=== PATIENT | female | born 1945 | race African-American/Black ===

== ENCOUNTER 2021-07-25 11:19 | Observation (INO) | payer MEDICARE, OTHER ==
[~2021-07-25] VITALS: Ht 157.5 cm; Wt 106.5 kg
[2021-07-25] MEDS ORDERED: ONDANSETRON PF 4 MG/2 ML VIAL. IVP ONE (12:45)
[2021-07-25] MEDS ORDERED: diazePAM 5 MG TABLET PO ONE (12:45)
[2021-07-25] MEDS ORDERED: IV NORMAL SALINE 1000ML BAG 1,000 ML IV ONE (12:45)
[2021-07-25] MEDS ORDERED: MECLIZINE HCL 12.5 MG TABLET. PO ONE (12:45)
[2021-07-25 12:57] LABS: BASO % 0 % (0-3); EOS % 1 % (0-3); HEMATOCRIT 41.9 % (36.0-47.0); HEMOGLOBIN 13.6 g/dL (12.0-15.5); LYMPH # 0.9 x10^3/uL (1.0-4.8); LYMPH % 18 % (24-48); MEAN CORPUSCULAR HEMOGLOBIN 28 pg (25-35); MEAN CORPUSCULAR HGB CONC 32 g/dL (31-37); MEAN CORPUSCULAR VOLUME 85 fL (79-100); MONO # 0.3 x10^3/uL (0.0-1.1); MONO % 5 % (0-9); NEUT # 3.8 x10^3/uL (1.8-7.7); NEUT % 75 % (31-73); PLATELET COUNT 245 x10^3/uL (140-400); RED BLOOD COUNT 4.91 x10^6/uL (3.50-5.40); RED CELL DISTRIBUTION WIDTH 14.3 % (11.5-14.5)
--- NOTE | 2021-07-25 13:04 | EKG ---
[facility] [address] [place] [address] Test Date: 2021-07-25 Test Time: 12:46:27 Pat Name: LIU RENTERIA Department: Room: Gender: F Requirements Engineer: : [id number] Requested By: MELYSSA BARKER Order Number: [id number] Reading MD: Parker Draper MD Measurements Intervals [place] Rate: 62 P: 90 MS: 246 QRS: -11 QRSD: 86 T: -13 QT: 448 QTc: 457 Interpretive Statements SINUS RHYTHM PROLONGED MS INTERVAL Electronically Signed On 07-25-2021 17:34:52 CDT by Parker Draper MD
[2021-07-25 13:09] LABS: CALCIUM 8.8 mg/dL (8.5-10.1); GFR 65.6
[2021-07-25 13:10] LABS: PROTHROMBIN TIME PATIENT 13.5 SEC (11.7-14.0)
[2021-07-25 13:16] LABS: ALBUMIN 3.3 g/dL (3.4-5.0); ALBUMIN/GLOBULIN RATIO 0.9 (1.0-1.7); TOTAL BILIRUBIN 0.4 mg/dL (0.2-1.0); TOTAL PROTEIN 7.1 g/dL (6.4-8.2)
--- NOTE | 2021-07-25 13:42 | RAD ---
CT brain without contrast. HISTORY: Dizziness, vertigo CT scan of brain was done without contrast. Sinuses are clear. There is no skull fracture. Mastoids a re normally aerated. There is no intracranial hemorrhage or subdural hematoma. There is no mass effec t or shift of the midline. Ventricles are normal in size. An acute CVA is not identified. IMPRESSION: 1. No intracranial hemorrhage or acute finding noted. PQRS Compliance Statement: One or more of the following individualized dose reduction techniques were utilized for this examinat ion: 1. Automated exposure control 2. Adjustment of the mA and/or kV according to patient size 3. Use of iterative reconstruction technique Electronically signed by: Daniel Dorsey MD (07/25/2021 1:40 PM) [facility]
--- NOTE | 2021-07-25 13:57 | PHYS DOC ---
Past Medical History Additional Past Medical Histor: hip and leg Past Surgical History: No Surgical History Adult General Chief Complaint Chief Complaint: DIZZY/LIGHT HEADED [facility] HPI Patient is a 76 year old female presenting to the emergency department for evaluation of dizziness that she describes as room spinning sensation that started yesterday morning and has persisted. She says whenever she moves her head she feels the room spinning with nausea and that when she tries to walk she has stumbled as well due to the room spinning sensation. Seems to get worse with movements of her head. She denies any vision changes confusion unilateral weakness numbness or tingling. Patient denies any pain or shortness of breath. She is in no acute distress with normal vital signs. Review of Systems Review of Systems Constitutional: Denies fever or chills [] Eyes: Denies change in visual acuity, redness, or eye pain [] HENT: Denies nasal congestion or sore throat [] Respiratory: Denies cough or shortness of breath [] Cardiovascular: No additional information not addressed in HPI [] GI: Denies abdominal pain. + nausea. No vomiting, bloody stools or diarrhea [] : Denies dysuria or hematuria [] Musculoskeletal: Denies back pain or joint pain [] Integument: Denies rash or skin lesions [] Neurologic: Denies headache, focal weakness or sensory changes [] All other systems were reviewed and found to be within normal limits, except as documented in this note. Current Medications Current Medications Current Medications Medications (Trade) Dose Ordered Sig/Meredith Start Time Stop Time Status Last Admin Dose Admin Diazepam (Valium) 5 mg 1X ONCE 07/25/21 12:45 07/25/21 12:50 DC Meclizine HCl (Antivert) 25 mg 1X ONCE 07/25/21 12:45 07/25/21 12:50 DC Ondansetron HCl (Zofran) 4 mg PRN Q8HRS PRN 07/25/21 15:15 07/26/21 15:14 Sodium Chloride 1,000 ml @ 150 mls/hr Q6H40M 07/25/21 15:15 07/26/21 15:14 Allergies Allergies Allergies Coded Allergies Type Severity Reaction Last Updated Verified No Known Drug Allergies 03/07/14 No Physical Exam Physical Exam Constitutional: Well developed, well nourished, no acute distress, non-toxic appearance. [] HENT: Normocephalic, atraumatic, bilateral external ears normal, oropharynx moist, no oral exudates, nose normal. [] Eyes: PERRLA, EOMI, conjunctiva normal, no discharge. [] Neck: Normal range of motion, no tenderness, supple, no stridor. [] Cardiovascular:Heart rate regular rhythm, no murmur [] Lungs & Thorax: Bilateral breath sounds clear to auscultation [] Abdomen: Bowel sounds normal, soft, no tenderness, no masses, no pulsatile masses. [] Skin: Warm, dry, no erythema, no rash. [] Back: No tenderness, no CVA tenderness. [] Extremities: No tenderness, no cyanosis, no clubbing, ROM intact, no edema. [] Neurologic: Alert and oriented X 3, normal motor function, normal sensory function, no focal deficits noted. [] Current Patient Data Lab Values Laboratory Tests Test 07/25/21 12:40 White Blood Count 5.0 x10^3/uL (4.0-11.0) Red Blood Count 4.91 x10^6/uL (3.50-5.40) Hemoglobin 13.6 g/dL (12.0-15.5) Hematocrit 41.9 % (36.0-47.0) Mean Corpuscular Volume 85 fL (79-100) Mean Corpuscular Hemoglobin 28 pg (25-35) Mean Corpuscular Hemoglobin Concent 32 g/dL (31-37) Red Cell Distribution Width 14.3 % (11.5-14.5) Platelet Count 245 x10^3/uL (140-400) Neutrophils (%) (Auto) 75 % (31-73) H Lymphocytes (%) (Auto) 18 % (24-48) L Monocytes (%) (Auto) 5 % (0-9) Eosinophils (%) (Auto) 1 % (0-3) Basophils (%) (Auto) 0 % (0-3) Neutrophils # (Auto) 3.8 x10^3/uL (1.8-7.7) Lymphocytes # (Auto) 0.9 x10^3/uL (1.0-4.8) L Monocytes # (Auto) 0.3 x10^3/uL (0.0-1.1) Eosinophils # (Auto) 0.0 x10^3/uL (0.0-0.7) Basophils # (Auto) 0.0 x10^3/uL (0.0-0.2) Prothrombin Time 13.5 SEC (11.7-14.0) Prothrombin Time INR 1.1 (0.8-1.1) Activated Partial Thromboplast Time 28 SEC (24-38) Sodium Level 140 mmol/L (136-145) Potassium Level 4.0 mmol/L (3.5-5.1) Chloride Level 104 mmol/L (98-107) Carbon Dioxide Level 32 mmol/L (21-32) Anion Gap 4 (6-14) L Blood Urea Nitrogen 10 mg/dL (7-20) Creatinine 1.0 mg/dL (0.6-1.0) Estimated GFR (Cockcroft-Gault) 65.6 BUN/Creatinine Ratio 10 (6-20) Glucose Level 123 mg/dL (70-99) H Calcium Level 8.8 mg/dL (8.5-10.1) Total Bilirubin 0.4 mg/dL (0.2-1.0) Aspartate Amino Transferase (AST) 13 U/L (15-37) L Alanine Aminotransferase (ALT) 14 U/L (14-59) Alkaline Phosphatase 79 U/L (46-116) Troponin I High Sensitivity 6 ng/L (4-50) NA-Pew-K-Type Natriuretic Peptide 124 pg/mL (0-124) Total Protein 7.1 g/dL (6.4-8.2) Albumin 3.3 g/dL (3.4-5.0) L Albumin/Globulin Ratio 0.9 (1.0-1.7) L Laboratory Tests 07/25/21 12:40 Laboratory Tests 07/25/21 12:40 EKG EKG Sinus rhythm at 62 bpm with leftward axis. No ST elevation or depression but th ere is a wandering baseline. Radiology/Procedures Radiology/Procedures [] Course & Med Decision Making Course & Med Decision Making Patient was given meclizine Valium Zofran and unfortunately she is still felt very dizzy and was unable to ambulate unassisted. Given patient is unable to ambulate and is still vertiginous we will plan for admission for further observation and treatment. Patient admitted in stable condition. Dragon Disclaimer Dragon Disclaimer This electronic medical record was generated, in whole or in part, using a voice recognition dictation system. Departure Departure Impression: Primary Impression: Vertigo Additional Impression: Inability to ambulate due to multiple joints Disposition: ADMITTED INPATIENT Admitting Physician: ZEINAB Condition: STABLE Referrals: NON,STAFF (PCP) Problem Qualifiers MELYSSA BARKER DO Jul 25, 2021 13:56
[2021-07-25] MEDS ORDERED: ONDANSETRON PF 4 MG/2 ML VIAL. IVP PRN (15:15)
[2021-07-25 17:02] LABS: BACTERIA,URINE FEW /HPF (0-FEW); RBC,URINE 0 /HPF (0-2); WBC,URINE 0 /HPF (0-4)
[2021-07-25] MEDS: IV NORMAL SALINE 1000ML BAG 1,000 ML IV SCH (18:37)
[2021-07-25] MEDS ORDERED: NETA2.5D3 OP (18:41)
[2021-07-25 19:00] VITALS: BP 138/69
--- NOTE | 2021-07-25 21:29 | PDOC1 ---
History and Physical Date of Admission Date of Admission DATE: 07/25/21 TIME: 21:23 Source Source: Chart review, Patient History of Present Illness History of Present Illness Ms. Coronado is a 76 year old female admit with new dizziness and weakness today. She in the ER described the room spinning with lightheaded sensation but that feels better, now, she thinks the IV fluid has helped. THe dizzy was for about 24 hours. new nausea that was worse with trying to walk but that also seems improved, the ER note reflected that she reported symptoms worse with movements of her head. Patient denies any pain or shortness of breath. She is in no acute distress with normal vital signs Her PCP is Dr. Mireles Past Medical History Past Medical History catarct Cardiovascular: HTN Musculoskeletal: low back pain, Other (sciatica) ENT: No pertinent hx Endocrine: Other (metabolic syndrome) Past Surgical History Past Surgical History: No pertinent history Family History Family History: No Significant Social History Smoke: No ALCOHOL: none Drugs: None Current Problem List Problem List Problems Medical Problems: (1) Inability to ambulate due to multiple joints Status: Acute (2) Vertigo Status: Acute Current Medications Current Medications Current Medications Sodium Chloride 1,000 ml @ 1,000 mls/hr 1X ONCE IV Last administered on 07/25/21at 15:32; Start 07/25/21 at 12:45; Stop 07/25/21 at 13:44; Status DC Ondansetron HCl (Zofran) 4 mg 1X ONCE IVP Last administered on 07/25/21at 15:36; Start 07/25/21 at 12:45; Stop 07/25/21 at 12:50; Status DC Diazepam (Valium) 5 mg 1X ONCE PO Last administered on 07/25/21at 15:40; Start 07/25/21 at 12:45; Stop 07/25/21 at 12:50; Status DC Meclizine HCl (Antivert) 25 mg 1X ONCE PO Last administered on 07/25/21at 15:38; Start 07/25/21 at 12:45; Stop 07/25/21 at 12:50; Status DC Ondansetron HCl (Zofran) 4 mg PRN Q8HRS PRN IVP NAUSEA/VOMITING; Start 07/25/21 at 15:15; Stop 07/26/21 at 15:14 Sodium Chloride 1,000 ml @ 150 mls/hr Q6H40M IV Last administered on 07/25/21at 18:37; Start 07/25/21 at 15:15; Stop 07/26/21 at 15:14 Active Scripts Active Reported Rocklatan 0.02%-0.005% Eye Drp (Netarsudil Mesylat/Latanoprost) 2.5 Ml Drops 1 Drop OP HS Allergies Allergies: Coded Allergies: No Known Drug Allergies (Unverified , 03/07/14) ROS General: No: Chills, Night Sweats, Fatigue, Malaise, Appetite, Other PSYCHOLOGICAL ROS: YES: Sleep disturbances (hip pain); No: Anxiety, Behavioral Disorder, Concentration difficultie, Decreased libido, Depression, Disorientation, Hallucinations, Hostility, Irritablity, Memory difficulties, Mood Swings, Obsessive thoughts, Suicidal ideation, Other Eyes: No Blurry vision, No Decreased vision, No Double vision, No Dry eyes, No Excessive tearing, No Eye Pain, No Itchy Eyes, No Loss of vision, No Photophobia, No Scotomata, No Uses contacts, No Uses glasses, No Other HEENT: No: Heacaches, Visual Changes, Hearing change, Nasal congestion, Nasal discharge, Oral lesions, Sinus pain, Sore Throat, Epistaxis, Sneezing, Snoring, Tinnitus, Vertigo, Vocal changes, Other ENDOCRINE: No: Breast Changes, Galactorrhea, Hair Pattern Changes, Hot Flashes, Malaise/lethargy, Mood Swings, Palpitations, Polydipsia/polyuria, Skin Changes, Temperature Intolerance, Unexpected Weight Changes, Other Breast: No New/Changing Breast Lumps, No Nipple changes, No Nipple discharge, No Other Respiratory: No: Cough, Hemoptysis, Orthopnea, Pleuritic Pain, Shortness of breath, SOB with excertion, Sputum Changes, Stridor, Tachypnea, Wheezing, Other Gastrointestinal: No Nausea, No Vomiting, No Abdominal Pain, No Diarrhea, No Constipation, No Melena, No Hematochezia, No Other Musculoskeletal: Yes Joint Pain, Yes Joint Stiffness, Yes Muscular Weakness, Yes Pain In: (left hip and leg) Neurological: No Behavorial Changes, No Bowel/Bladder ControlChng, No Confusion, No Dizziness, No Gait Disturbance, No Headaches, No Impaired Coord/balance, No Memory Loss, No Numbness/Tingling, No Seizures, No Speech Problems, No Tremors, No Visual Changes, No Weakness, No Other Skin: No Dry Skin, No Eczema, No Hair Changes, No Lumps, No Mole Changes, No Mottling, No Nail Changes, No Pruritus, No Rash, No Skin Lesion Changes, No Other, No Acne Physical Exam General: Alert, Oriented X3, Cooperative, mild distress HEENT: Atraumatic, PERRLA, EOMI Lungs: Clear to auscultation, Normal air movement Heart: S1S2, RRR, no murmurs Abdomen: Normal bowel sounds, Soft, No tenderness Extremities: No clubbing, No edema, Normal pulses Skin: No rashes, No significant lesion Neuro: Normal speech, Sensation intact Psych/Mental Status: Mental status NL, Mood NL Vitals Vitals Vital Signs Date Time Temp Pulse Resp B/P (MAP) Pulse Ox O2 Delivery O2 Flow Rate FiO2 07/25/21 19:00 98.4 64 18 138/69 (92) 97 98.4 07/25/21 17:30 Room Air Labs Labs Laboratory Tests Test 07/25/21 12:40 07/25/21 12:45 White Blood Count 5.0 x10^3/uL (4.0-11.0) Red Blood Count 4.91 x10^6/uL (3.50-5.40) Hemoglobin 13.6 g/dL (12.0-15.5) Hematocrit 41.9 % (36.0-47.0) Mean Corpuscular Volume 85 fL (79-100) Mean Corpuscular Hemoglobin 28 pg (25-35) Mean Corpuscular Hemoglobin Concent 32 g/dL (31-37) Red Cell Distribution Width 14.3 % (11.5-14.5) Platelet Count 245 x10^3/uL (140-400) Neutrophils (%) (Auto) 75 % (31-73) Lymphocytes (%) (Auto) 18 % (24-48) Monocytes (%) (Auto) 5 % (0-9) Eosinophils (%) (Auto) 1 % (0-3) Basophils (%) (Auto) 0 % (0-3) Neutrophils # (Auto) 3.8 x10^3/uL (1.8-7.7) Lymphocytes # (Auto) 0.9 x10^3/uL (1.0-4.8) Monocytes # (Auto) 0.3 x10^3/uL (0.0-1.1) Eosinophils # (Auto) 0.0 x10^3/uL (0.0-0.7) Basophils # (Auto) 0.0 x10^3/uL (0.0-0.2) Prothrombin Time 13.5 SEC (11.7-14.0) Prothromb Time International Ratio 1.1 (0.8-1.1) Activated Partial Thromboplast Time 28 SEC (24-38) Sodium Level 140 mmol/L (136-145) Potassium Level 4.0 mmol/L (3.5-5.1) Chloride Level 104 mmol/L (98-107) Carbon Dioxide Level 32 mmol/L (21-32) Anion Gap 4 (6-14) Blood Urea Nitrogen 10 mg/dL (7-20) Creatinine 1.0 mg/dL (0.6-1.0) Estimated GFR (Cockcroft-Gault) 65.6 BUN/Creatinine Ratio 10 (6-20) Glucose Level 123 mg/dL (70-99) Calcium Level 8.8 mg/dL (8.5-10.1) Total Bilirubin 0.4 mg/dL (0.2-1.0) Aspartate Amino Transf (AST/SGOT) 13 U/L (15-37) Alanine Aminotransferase (ALT/SGPT) 14 U/L (14-59) Alkaline Phosphatase 79 U/L (46-116) Troponin I High Sensitivity 6 ng/L (4-50) JH-Zxz-Y-Type Natriuretic Peptide 124 pg/mL (0-124) Total Protein 7.1 g/dL (6.4-8.2) Albumin 3.3 g/dL (3.4-5.0) Albumin/Globulin Ratio 0.9 (1.0-1.7) Urine Collection Type Unknown Urine Color (Auto) Light yellow Urine Turbidity Clear Urine pH (Auto) 6.0 (<5.0-8.0) Urine Specific [place] 1.009 (1.000-1.030) Urine Protein (Auto) Negative mg/dL (Negative) Urine Glucose (Auto)(UA) Negative mg/dL (Negative) Urine Ketones (Auto) Negative mg/dL (Negative) Urine Blood (Auto) Negative (Negative) Urine Nitrite Negative (Negative) Urine Bilirubin (Auto) Negative (Negative) Urine Urobilinogen (Auto) Normal mg/dL (Normal) Urine Leukocyte Esterase (Auto) Negative (Negative) Urine RBC 0 /HPF (0-2) Urine WBC 0 /HPF (0-4) Urine Squamous Epithelial Cells Few /LPF Urine Bacteria Few /HPF (0-FEW) Urine Mucus Slight /LPF Laboratory Tests Test 07/25/21 12:40 07/25/21 12:45 White Blood Count 5.0 x10^3/uL (4.0-11.0) Red Blood Count 4.91 x10^6/uL (3.50-5.40) Hemoglobin 13.6 g/dL (12.0-15.5) Hematocrit 41.9 % (36.0-47.0) Mean Corpuscular Volume 85 fL (79-100) Mean Corpuscular Hemoglobin 28 pg (25-35) Mean Corpuscular Hemoglobin Concent 32 g/dL (31-37) Red Cell Distribution Width 14.3 % (11.5-14.5) Platelet Count 245 x10^3/uL (140-400) Neutrophils (%) (Auto) 75 % (31-73) Lymphocytes (%) (Auto) 18 % (24-48) Monocytes (%) (Auto) 5 % (0-9) Eosinophils (%) (Auto) 1 % (0-3) Basophils (%) (Auto) 0 % (0-3) Neutrophils # (Auto) 3.8 x10^3/uL (1.8-7.7) Lymphocytes # (Auto) 0.9 x10^3/uL (1.0-4.8) Monocytes # (Auto) 0.3 x10^3/uL (0.0-1.1) Eosinophils # (Auto) 0.0 x10^3/uL (0.0-0.7) Basophils # (Auto) 0.0 x10^3/uL (0.0-0.2) Prothrombin Time 13.5 SEC (11.7-14.0) Prothromb Time International Ratio 1.1 (0.8-1.1) Activated Partial Thromboplast Time 28 SEC (24-38) Sodium Level 140 mmol/L (136-145) Potassium Level 4.0 mmol/L (3.5-5.1) Chloride Level 104 mmol/L (98-107) Carbon Dioxide Level 32 mmol/L (21-32) Anion Gap 4 (6-14) Blood Urea Nitrogen 10 mg/dL (7-20) Creatinine 1.0 mg/dL (0.6-1.0) Estimated GFR (Cockcroft-Gault) 65.6 BUN/Creatinine Ratio 10 (6-20) Glucose Level 123 mg/dL (70-99) Calcium Level 8.8 mg/dL (8.5-10.1) Total Bilirubin 0.4 mg/dL (0.2-1.0) Aspartate Amino Transf (AST/SGOT) 13 U/L (15-37) Alanine Aminotransferase (ALT/SGPT) 14 U/L (14-59) Alkaline Phosphatase 79 U/L (46-116) Troponin I High Sensitivity 6 ng/L (4-50) LX-Kvd-K-Type Natriuretic Peptide 124 pg/mL (0-124) Total Protein 7.1 g/dL (6.4-8.2) Albumin 3.3 g/dL (3.4-5.0) Albumin/Globulin Ratio 0.9 (1.0-1.7) Urine Collection Type Unknown Urine Color (Auto) Light yellow Urine Turbidity Clear Urine pH (Auto) 6.0 (<5.0-8.0) Urine Specific [place] 1.009 (1.000-1.030) Urine Protein (Auto) Negative mg/dL (Negative) Urine Glucose (Auto)(UA) Negative mg/dL (Negative) Urine Ketones (Auto) Negative mg/dL (Negative) Urine Blood (Auto) Negative (Negative) Urine Nitrite Negative (Negative) Urine Bilirubin (Auto) Negative (Negative) Urine Urobilinogen (Auto) Normal mg/dL (Normal) Urine Leukocyte Esterase (Auto) Negative (Negative) Urine RBC 0 /HPF (0-2) Urine WBC 0 /HPF (0-4) Urine Squamous Epithelial Cells Few /LPF Urine Bacteria Few /HPF (0-FEW) Urine Mucus Slight /LPF VTE Prophylaxis Ordered VTE Prophylaxis Devices: Yes VTE Pharmacological Prophylaxi: No Assessment/Plan Assessment/Plan dizzy, poss postural - poss vertigo but did not improve much with med therapy check for orthostatic hypotensive, hydrate IV fluid overnight htn obese ,BMI 41 left hip pain, left leg sciatica, known bulging disk, is s/p PT treatment and has gotten epidural at , consult physiatry here, she asked to get xray of her hip as she has marked hip pain side of left hip that is new Justifications for Admission Other Justification BEAR RUIZ MD Jul 25, 2021 21:29
[2021-07-25] MEDS: traMADol 50 MG TABLET PO PRN (21:49)
[2021-07-25 23:00] VITALS: BP 165/67
[2021-07-26] VITALS (8 sets, daily range): BP systolic 136–187; BP diastolic 59–85
[2021-07-26] MEDS: IV NORMAL SALINE 1000ML BAG 1,000 ML IV SCH ×3 (01:57→16:06)
[2021-07-26 03:47] LABS: BASO % 0 % (0-3); EOS # 0.1 x10^3/uL (0.0-0.7); EOS % 2 % (0-3); HEMATOCRIT 40.3 % (36.0-47.0); HEMOGLOBIN 12.9 g/dL (12.0-15.5); LYMPH % 36 % (24-48); MEAN CORPUSCULAR HEMOGLOBIN 27 pg (25-35); MEAN CORPUSCULAR HGB CONC 32 g/dL (31-37); MEAN CORPUSCULAR VOLUME 86 fL (79-100); MONO # 0.4 x10^3/uL (0.0-1.1); MONO % 6 % (0-9); NEUT # 3.1 x10^3/uL (1.8-7.7); NEUT % 55 % (31-73); PLATELET COUNT 242 x10^3/uL (140-400); RED CELL DISTRIBUTION WIDTH 14.5 % (11.5-14.5); WHITE BLOOD COUNT 5.5 x10^3/uL (4.0-11.0)
[2021-07-26 04:52] LABS: CALCIUM 8.2 mg/dL (8.5-10.1); CREATININE 0.9 mg/dL (0.6-1.0); GFR 74.1; POTASSIUM 4.3 mmol/L (3.5-5.1)
[2021-07-26] MEDS: traMADol 50 MG TABLET PO PRN (06:25)
--- NOTE | 2021-07-26 09:43 | RAD ---
Single view pelvis, single view left hip and two-view left femur dated 07/26/2021. COMPARISON: None. INDICATION: Pain. FINDINGS: AP view pelvis and single view left hip show normal bony alignment. No displaced fracture. Mild degen erative change of the bilateral hip joint and bilateral SI joint and pubic symphysis. No periostitis or bone destruction. 2 views left femur show normal bony alignment. No femoral shaft fracture. No periostitis or bone dest ruction. There is moderate degenerative change at the left knee joint. IMPRESSION: 1. No evidence of displaced fracture. If there is persistent clinical concern for occult fracture or insufficiency fracture, MRI could better evaluate. 2. Degenerative changes as above. Electronically signed by: Campbell Morel MD (07/26/2021 9:40 AM) [id number]
--- NOTE | 2021-07-26 11:13 | PDOC ---
[employer] PROGRESS NOTE Date of Service DOS: DATE: 07/26/21 TIME: 11:11 Chief Complaint Chief Complaint dizzy, poss postural - poss vertigo but did not improve much with med therapypending PT OT evaluation check for orthostatic hypotensive, hydrate IV fluid overnight htn obese ,BMI 41 left hip pain, left leg sciatica, known bulging disk, is s/p PT treatment and has gotten epidural at , consult physiatry here, she asked to get xray of her hip as she has marked hip pain side of left hip that is new Anticipate discharge in the next 24 to 48 hours History of Present Illness History of Present Illness 76 year old female admit with new dizziness and weakness today. She in the ER described the room spinning with lightheaded sensation but that feels better, now, she thinks the IV fluid has helped. THe dizzy was for about 24 hours. new nausea that was worse with trying to walk but that also seems improved, the ER note reflected that she reported symptoms worse with movements of her head. Patient denies any pain or shortness of breath. She is in no acute distress with normal vital signs Her PCP is Dr. Mireles 07/26/2021 No acute events overnight. Patient seen examined bedside. AF and VSS. Patient is not orthostatic. Vertigo seem to have improved. Hip x-ray obtained showing no acute fractures. Pending further evaluation from PMR. Patient's chart, labs, images were reviewed and discussed with RN Vitals/I&O Vitals/I&O: Vital Signs Date Time Temp Pulse Resp B/P (MAP) Pulse Ox O2 Delivery O2 Flow Rate FiO2 07/26/21 08:00 Room Air 07/26/21 07:00 98.3 61 18 159/69 (99) 96 98.3 I & O 07/25/21 07/25/21 07/26/21 15:00 23:00 07:00 Intake Total 1000 ml 1000 ml Output Total 600 ml Balance 1000 ml 400 ml Physical Exam General: Alert, Oriented X3, Cooperative, mild distress Abdomen: Normal bowel sounds, Soft, No tenderness Extremities: No clubbing, No edema, Normal pulses Skin: No rashes, No significant lesion Labs Labs: Laboratory Tests Test 07/25/21 12:40 07/25/21 12:45 07/26/21 02:00 White Blood Count 5.0 x10^3/uL (4.0-11.0) 5.5 x10^3/uL (4.0-11.0) Red Blood Count 4.91 x10^6/uL (3.50-5.40) 4.70 x10^6/uL (3.50-5.40) Hemoglobin 13.6 g/dL (12.0-15.5) 12.9 g/dL (12.0-15.5) Hematocrit 41.9 % (36.0-47.0) 40.3 % (36.0-47.0) Mean Corpuscular Volume 85 fL (79-100) 86 fL (79-100) Mean Corpuscular Hemoglobin 28 pg (25-35) 27 pg (25-35) Mean Corpuscular Hemoglobin Concent 32 g/dL (31-37) 32 g/dL (31-37) Red Cell Distribution Width 14.3 % (11.5-14.5) 14.5 % (11.5-14.5) Platelet Count 245 x10^3/uL (140-400) 242 x10^3/uL (140-400) Neutrophils (%) (Auto) 75 % (31-73) 55 % (31-73) Lymphocytes (%) (Auto) 18 % (24-48) 36 % (24-48) Monocytes (%) (Auto) 5 % (0-9) 6 % (0-9) Eosinophils (%) (Auto) 1 % (0-3) 2 % (0-3) Basophils (%) (Auto) 0 % (0-3) 0 % (0-3) Neutrophils # (Auto) 3.8 x10^3/uL (1.8-7.7) 3.1 x10^3/uL (1.8-7.7) Lymphocytes # (Auto) 0.9 x10^3/uL (1.0-4.8) 2.0 x10^3/uL (1.0-4.8) Monocytes # (Auto) 0.3 x10^3/uL (0.0-1.1) 0.4 x10^3/uL (0.0-1.1) Eosinophils # (Auto) 0.0 x10^3/uL (0.0-0.7) 0.1 x10^3/uL (0.0-0.7) Basophils # (Auto) 0.0 x10^3/uL (0.0-0.2) 0.0 x10^3/uL (0.0-0.2) Prothrombin Time 13.5 SEC (11.7-14.0) Prothromb Time International Ratio 1.1 (0.8-1.1) Activated Partial Thromboplast Time 28 SEC (24-38) Sodium Level 140 mmol/L (136-145) 141 mmol/L (136-145) Potassium Level 4.0 mmol/L (3.5-5.1) 4.3 mmol/L (3.5-5.1) Chloride Level 104 mmol/L (98-107) 107 mmol/L (98-107) Carbon Dioxide Level 32 mmol/L (21-32) 29 mmol/L (21-32) Anion Gap 4 (6-14) 5 (6-14) Blood Urea Nitrogen 10 mg/dL (7-20) 11 mg/dL (7-20) Creatinine 1.0 mg/dL (0.6-1.0) 0.9 mg/dL (0.6-1.0) Estimated GFR (Cockcroft-Gault) 65.6 74.1 BUN/Creatinine Ratio 10 (6-20) Glucose Level 123 mg/dL (70-99) 102 mg/dL (70-99) Calcium Level 8.8 mg/dL (8.5-10.1) 8.2 mg/dL (8.5-10.1) Total Bilirubin 0.4 mg/dL (0.2-1.0) Aspartate Amino Transf (AST/SGOT) 13 U/L (15-37) Alanine Aminotransferase (ALT/SGPT) 14 U/L (14-59) Alkaline Phosphatase 79 U/L (46-116) Troponin I High Sensitivity 6 ng/L (4-50) 9 ng/L (4-50) UW-Pje-E-Type Natriuretic Peptide 124 pg/mL (0-124) Total Protein 7.1 g/dL (6.4-8.2) Albumin 3.3 g/dL (3.4-5.0) Albumin/Globulin Ratio 0.9 (1.0-1.7) Urine Collection Type Unknown Urine Color (Auto) Light yellow Urine Turbidity Clear Urine pH (Auto) 6.0 (<5.0-8.0) Urine Specific [place] 1.009 (1.000-1.030) Urine Protein (Auto) Negative mg/dL (Negative) Urine Glucose (Auto)(UA) Negative mg/dL (Negative) Urine Ketones (Auto) Negative mg/dL (Negative) Urine Blood (Auto) Negative (Negative) Urine Nitrite Negative (Negative) Urine Bilirubin (Auto) Negative (Negative) Urine Urobilinogen (Auto) Normal mg/dL (Normal) Urine Leukocyte Esterase (Auto) Negative (Negative) Urine RBC 0 /HPF (0-2) Urine WBC 0 /HPF (0-4) Urine Squamous Epithelial Cells Few /LPF Urine Bacteria Few /HPF (0-FEW) Urine Mucus Slight /LPF Assessment and Plan Assessmemt and Plan Problems Medical Problems: (1) Inability to ambulate due to multiple joints Status: Acute (2) Vertigo Status: Acute Comment Review of Relevant I have reviewed the following items gabby (where applicable) has been applied. Medications: Current Medications Medications (Trade) Dose Ordered Sig/Meredith Route PRN Reason Start Time Stop Time Status Last Admin Dose Admin Sodium Chloride 1,000 ml @ 1,000 mls/hr 1X ONCE IV 07/25/21 12:45 07/25/21 13:44 DC 07/25/21 15:32 Ondansetron HCl (Zofran) 4 mg 1X ONCE IVP 07/25/21 12:45 07/25/21 12:50 DC 07/25/21 15:36 Diazepam (Valium) 5 mg 1X ONCE PO 07/25/21 12:45 07/25/21 12:50 DC 07/25/21 15:40 Meclizine HCl (Antivert) 25 mg 1X ONCE PO 07/25/21 12:45 07/25/21 12:50 DC 07/25/21 15:38 Sodium Chloride 1,000 ml @ 150 mls/hr Q6H40M IV 07/25/21 15:15 07/26/21 15:14 07/26/21 08:55 Tramadol HCl (Ultram) 50 mg PRN Q6HRS PRN PO MODERATE PAIN 4-6 07/25/21 21:30 07/26/21 06:25 Justifications for Admission Other Justification SHUBHAM VALE MD Jul 26, 2021 11:13
[2021-07-26] MEDS ORDERED: MECLIZINE HCL 12.5 MG TABLET. PO PRN (11:15)
--- NOTE | 2021-07-26 11:27 | PDOC2 ---
Consult: Consult note dictated#[id number] HO POSADA MD Jul 26, 2021 11:27
[2021-07-26] MEDS: IBUPROFEN 400 MG TABLET. PO SCH ×2 (11:30→16:06)
[2021-07-26] MEDS: MINERAL OIL/PETROLATUM TOPICAL CREAM 113GM JAR. TP SCH ×2 (12:00→22:13)
--- NOTE | 2021-07-26 13:35 | RAD ---
2 view cervical spine dated 07/26/2021. COMPARISON: None. INDICATION: Dizziness. FINDINGS: 2 view cervical spine show straightening of the normal cervical lordosis. Sagittal alignment is other acuña anatomic. Vertebral body heights are maintained. There are moderate to severe endplate hypertrop hic changes with prominent anterior osteophytes at the mid to lower cervical levels. There is moderat e disc space narrowing at C5-C6 and C6-7 with multilevel uncovertebral spurring and facet arthropathy . No prevertebral soft tissue swelling. IMPRESSION: 1. No acute radiographic abnormality. 2. Moderate multilevel cervical spondylosis. Electronically signed by: Campbell Morel MD (07/26/2021 1:33 PM) [id number]
--- NOTE | 2021-07-26 13:37 | RAD ---
Single view bilateral knee dated 07/26/2021. COMPARISON: None. INDICATION: Pain FINDINGS: AP views of bilateral knee obtained in standing position. Moderate tricompartmental hypertrophic gallegos ge with prominent marginal osteophytes. There is asymmetric severe joint space narrowing of the media l compartments bilaterally. No destructive process or fracture. IMPRESSION: 1. No acute radiographic abnormality. 2. Moderate to severe bilateral DJD. Electronically signed by: Campbell Morel MD (07/26/2021 1:34 PM) [id number]
[2021-07-26] MEDS ORDERED: [UNRECOGNIZED DRUG - OTHER] OU SCH (21:00)
[2021-07-26] MEDS ORDERED: LATANOPROST OU SCH (21:00)
[2021-07-26] MEDS ORDERED: NETARSUDIL MESYLAT OU SCH (21:00)
--- NOTE | 2021-07-27 00:53 | CONS ---
DATE OF CONSULTATION: 07/26/2021 ATTENDING PHYSICIAN: Dr. Ramírez. REASON FOR CONSULTATION: The patient was seen at the request of Dr. Ramírez for rehab evaluation. HISTORY OF PRESENT ILLNESS: This is a 76-year-old female with chronic lower back pain with left lumbar radiculitis usually getting epidural steroid injection done at the pain clinic at [facility] [place], had last one done in June. The patient admits it helped with the pain going down to right lower extremity, but she continues to have pain in her left side of her lower back and hip area radiating to her left lower extremity. She lives in a high-rise apartment, uses a walker to get around. The patient started having dizziness and nausea and increased weakness in the last 2 to 3 days. She was admitted to the Emergency Room on 07/25/2021. CT scan of the brain failed to reveal any abnormalities. X-rays of her pelvis and femur revealed degenerative changes in the lumbar spine, hips and left knee. The patient is a retired social science instructor. Dr. Brittni Mireles is her family care physician. PAST MEDICAL HISTORY: Includes hypertension, status post cataract surgery. PHYSICAL EXAMINATION: Today revealed a middle-aged female. She is alert, oriented to time, place, person and circumstance, follows commands appropriately. The patient had pain-free range of motion of cervical spine and she had painful limited movements of lumbar spine without any significant paraspinal muscle spasm and tenderness to palpation over left sacroiliac joint area, bilateral trochanteric bursa and over medial knee joint line of both knees. She had crepitus on range of motion of her knee joints and left ankle joint. She had limitation of external rotation at right hip joint. She had pain-free range of motion of left hip joint. She had 5/5 grade muscle strength overall. Deep tendon reflexes are 1-2+ and symmetrical and she had equal perception of touch and pinprick sensation bilaterally. Straight leg raising test is negative bilaterally. She had dry scaly skin of her extremities. The patient is still feeling dizziness. I have checked her for orthostatic hypotension. No evidence of any significant drop with her blood pressure from sitting supine and standing was noted. It remained around 173/60 mmHg. She does not have any neck pain, no tenderness to palpation over cervical spine and she had pain free range of motion of her cervical spine. No obvious visual field cut or facial asymmetry noted. No difficulty with communication or cognition noted. She is independent with bed mobility, transfers and up walking. She walks with somewhat wide-based gait, using a roller walker slowly. Her skin is intact at this time. ASSESSMENT: 1. A middle-aged female with chronic lower back pain from degenerative disk disease of lumbar vertebrae with lumbar radiculitis. No clinical evidence of ongoing lumbar radiculopathy. 2. Degenerative joint disease of both hips and both knees and left ankle with some pain, left knee bilateral trochanteric bursitis. The patient with known hypertension, admitted for dizziness. CT scan of the brain was within normal limits. She may be having dizziness from inner ear problem. No changes noted to think orthostatic hypotension might be causing her dizziness. RECOMMENDATIONS: To start her on meclizine on a regular basis, to ask physical therapy to try to work with her to consider injecting painful left sacroiliac joint area and left trochanteric bursa and left knee whenever she would like to have it done. Home when medically stable with outpatient followup. Dr. Ramírez, I appreciate asking me to participate in the care of this interesting patient. I will be glad to see her for followup with you on as needed basis. MELLY/DONALD/[facility] [place] DR: MELLY/denise TID: [id number]
[2021-07-27 03:09] VITALS: BP 151/72
[2021-07-27 07:00] VITALS: BP 140/59
[2021-07-27] MEDS: IBUPROFEN 400 MG TABLET. PO SCH ×2 (10:29→11:30)
[2021-07-27] MEDS: MINERAL OIL/PETROLATUM TOPICAL CREAM 113GM JAR. TP SCH (10:30)
[2021-07-27] MEDS ORDERED: MECL12.582 PO (10:56)
--- NOTE | 2021-07-27 10:58 | SNU/HH DC ---
DISCHARGE WITH HOME HEALTH DISCHARGE INFORMATION: Discharge Date: Jul 27, 2021 Final Diagnosis: Problems Medical Problems: (1) Inability to ambulate due to multiple joints Status: Acute (2) Vertigo Status: Acute Condition on Discharge: Stable CODE STATUS: Code Status: Full HOME HEALTH: Face to Face: I certify this patient is under my care and that I, or a nurse practitioner or physician's blacksmith assistant working with me, had a face to face encounter that meets the physician face to face encounter requirements with this patient on []. Medical Complications: Falls, HTN Senior Care For: Assess Cardiopulm Status, Assess & Educate Safety, Assess/Skilled Observatio, Medication Management, Pain Management RN For Eval/Treatment: Yes Physical Therapy For: Evalulation/Treatment Occupational Therapy For: Evaluation/Treatment Pt Meets Homebound Status: Unsteady balance w/ amb,, Extreme weakness w/ amb., Limited distance walking, Unable to negotiate home POST DISCHARGE ORDERS: Activity Instructions for Disc: Activity as tolerated Weight Bearing Status after Di: As tolerated DIET AFTER DISCHARGE: Cardiac FOLLOW-UP: Follow up with: PCP within 2 weeks of discharge CERTIFICATION STATEMENT: Certification Statement: Certification Statement: Based on the above finding, I certify that this patient is confined to the home and needs intermittent fci care, physical therapy and/or speech therapy, or continues to need occupational therapy.~ This patient is under my care, and I have initiated the establishment of the plan of care.~ This patient will be followed by myself or a community physician who will periodically review the plan of care. Home Meds Active Scripts Meclizine Hcl (MECLIZINE HCL) 12.5 Mg Tablet, 25 MG PO PRN Q6HRS PRN for dizziness for 7 Days, #28 TAB Prov:SHUBHAM VALE MD 07/27/21 Reported Medications Netarsudil Mesylat/Latanoprost (Rocklatan 0.02%-0.005% Eye Drp) 2.5 Ml Drops, 1 DROP OP for GLAUCOMA, DROP 07/25/21 Discontinued Reported Medications Info (NO KNOWN MEDICATIONS PRIOR TO ADMISSTION) Each, 1 EACH , EACH 03/07/14 SHUBHAM VALE MD Jul 27, 2021 10:58
[2021-07-27 11:00] VITALS: BP 148/73
--- NOTE | 2021-07-27 16:52 | NUR ---
Discharge Note: LIU RENTERIA Discharge instructions and discharge home medications reviewed with the patient and a copy given. All questions have been answered and understanding verbalized. The following instructions and handouts were given: Home meds as directed Follow up with PCP in a week Discussed stroke signs and symptoms and when to seek help Follow up with Dr. Knox Discontinued lines and drains: IV intact, noc omplications noted Patient discharged to home with Home health via wheelchair at 1600.
== END 2021-07-27 16:00 | disposition home health service (06) ==
LOC: ER 11:19 → 5 NORTH 14:21
PROVIDERS: ADMIT Internal Medicine; ATTEND Internal Medicine
DX: R42 Dizziness and giddiness (principal); M16.0 Bilateral primary osteoarthritis of hip; M17.0 Bilateral primary osteoarthritis of knee; M47.26 Other spondylosis with radiculopathy, lumbar region; M70.61 Trochanteric bursitis, right hip; I10 Essential (primary) hypertension; I95.1 Orthostatic hypotension; E66.9 Obesity, unspecified; G89.29 Other chronic pain; E88.81 Metabolic syndrome and other insulin resistance; M70.62 Trochanteric bursitis, left hip; Z79.01 Long term (current) use of anticoagulants; Z68.41 Body mass index [BMI] 40.0-44.9, adult; Z79.899 Other long term (current) drug therapy
CPT/HCPCS: 36415; 70450; 72040; 73502; 73551; 73565; 80048; 80053; 81001; 83880; 84484; 85025; 85610; 85730; 93005; 96361; 96374; 97162; 97165; 97530; 97535; 99285; G0378; J2405; J7030; J8597; G0379